=== PATIENT | male | born 1960 | race Caucasian/White ===

== ENCOUNTER → 2018-05-18 09:46 | Outpatient (CLI) | payer BC, MEDICARE, SELFPAY ==
[2018-05-18 10:48] LABS: Amphetamine Urine VISTA NEGATIVE (<1000 ng/mL); Barbiturate Urine VISTA NEGATIVE (< 200 ng/mL); Benzodiazepine Urine VISTA NEGATIVE (< 200 ng/mL); Cocaine Urine VISTA NEGATIVE (< 300 ng/mL); Ecstacy Urine VISTA NEGATIVE (< 500 ng/mL); Methadone Urine VISTA NEGATIVE (< 300 ng/mL); PCP Urine VISTA NEGATIVE (< 25 ng/mL); THC Urine VISTA NEGATIVE (< 50 ng/mL); Vista UDS pH Range 5
== END ==
PROVIDERS: Family Provider Family Medicine; PCP Family Medicine; Visit Provider Anesthesiology Pain Medicine
DX: F11.20 Opioid dependence, uncomplicated (principal)
CPT/HCPCS: 80307

== ENCOUNTER → 2019-04-06 10:58 | Outpatient (CLI) | payer BC, MEDICARE, SELFPAY ==
[2019-04-06 12:43] LABS: Amphetamine Urine VISTA NEGATIVE (<1000 ng/mL); Barbiturate Urine VISTA NEGATIVE (< 200 ng/mL); Benzodiazepine Urine VISTA NEGATIVE (< 200 ng/mL); Cocaine Urine VISTA NEGATIVE (< 300 ng/mL); Ecstacy Urine VISTA NEGATIVE (< 500 ng/mL); Methadone Urine VISTA NEGATIVE (< 300 ng/mL); PCP Urine VISTA NEGATIVE (< 25 ng/mL); THC Urine VISTA NEGATIVE (< 50 ng/mL); Vista UDS pH Range 6
== END ==
PROVIDERS: Family Provider Family Medicine; PCP Family Medicine; Referring Provider Anesthesiology Pain Medicine; Visit Provider Anesthesiology Pain Medicine
DX: F11.20 Opioid dependence, uncomplicated (principal)
CPT/HCPCS: 80307

== ENCOUNTER → 2020-06-27 14:14 | Outpatient (CLI) | payer BC, MEDICARE, SELFPAY ==
[2020-06-27 14:41] LABS: Amphetamine Urine VISTA NEGATIVE (<1000 ng/mL); Barbiturate Urine VISTA NEGATIVE (< 200 ng/mL); Benzodiazepine Urine VISTA NEGATIVE (< 200 ng/mL); Cocaine Urine VISTA NEGATIVE (< 300 ng/mL); Ecstacy Urine VISTA NEGATIVE (< 500 ng/mL); Methadone Urine VISTA NEGATIVE (< 300 ng/mL); PCP Urine VISTA NEGATIVE (< 25 ng/mL); THC Urine VISTA NEGATIVE (< 50 ng/mL); Vista UDS pH Range 6
== END ==
PROVIDERS: PCP Family Medicine; Referring Provider Anesthesiology Pain Medicine; Visit Provider Anesthesiology Pain Medicine
DX: F11.20 Opioid dependence, uncomplicated (principal)
CPT/HCPCS: 80307

== ENCOUNTER → 2020-12-12 12:27 | Outpatient (CLI) | payer BC, MEDICARE, SELFPAY ==
[2020-12-12 13:52] LABS: Amphetamine Urine VISTA NEGATIVE (<1000 ng/mL); Barbiturate Urine VISTA NEGATIVE (< 200 ng/mL); Benzodiazepine Urine VISTA NEGATIVE (< 200 ng/mL); Cocaine Urine VISTA NEGATIVE (< 300 ng/mL); Ecstacy Urine VISTA NEGATIVE (< 500 ng/mL); Methadone Urine VISTA NEGATIVE (< 300 ng/mL); PCP Urine VISTA NEGATIVE (< 25 ng/mL); THC Urine VISTA NEGATIVE (< 50 ng/mL); Vista UDS pH Range 5
== END ==
PROVIDERS: PCP Family Medicine; Referring Provider Anesthesiology Pain Medicine; Visit Provider Anesthesiology Pain Medicine
DX: F11.20 Opioid dependence, uncomplicated (principal)
CPT/HCPCS: 80307

== ENCOUNTER → 2021-01-31 14:12 | Outpatient (CLI) | payer BC, MEDICARE, SELFPAY ==
--- NOTE | 2021-01-31 14:14 | CT_ITS ---
STUDY: CTA OF THE ABDOMINAL AORTA AND BILATERAL LOWER EXTREMITIES REASON FOR EXAM: Male, 60 years old. Stricture of artery/atherosclerosis. History of tobacco abuse. High cholesterol and hypertension. RADIATION DOSAGE (If Supplied By Facility): CTDIvol = ( 10.95 ) mGy, DLP = ( 4413.96 ) mGycm TECHNIQUE: Axial CT angiography multi-detector data acquisition was obtained from the diaphragm to the feet following intravenous administration of IV 175 ML ISOVUE [id number]. Axial images and MIP images were reconstructed from the axial data set. Post-processing of the angiographic images was performed, with multiplanar reformation and 3D reconstruction. Individualized dose optimization techniques were used for this CT. TECHNICAL QUALITY: Good COMPARISON: None. Descriptors of Narrowing: None (0%) Mild (< 50%) Moderate (50-70%) Severe (70-90%) Subtotal/Total Occlusion (90-100%) Non-Evaluable (technically non-diagnostic FINDINGS: Abdominal aorta: Minimal atherosclerotic changes without stenosis aneurysm or dissection. Celiac and superior mesenteric arteries: Minimal atherosclerotic changes. The origin of the celiac artery without significant stenosis. Normal origin of the SMA. Scattered plaque is seen in the proximal artery without significant stenosis. Inferior mesenteric artery: No demonstrated narrowing. Right renal artery(arteries): Atherosclerotic changes of mild stenosis. Left renal artery(arteries): No demonstrated narrowing. Right common iliac artery: Atherosclerotic changes with mild stenosis. Right external iliac artery: Scattered atherosclerotic changes with mild stenosis. Right internal iliac artery: Atherosclerotic changes with mild stenosis. Left common iliac artery: Atherosclerotic changes with mild stenosis. Left external iliac artery: Scattered atherosclerotic changes with mild stenosis. Left internal iliac artery: Atherosclerotic changes with mild stenosis. RIGHT LOWER EXTREMITY Right common femoral artery: Occluded distally. Right profundus femoris: The origin is not well seen. . There is otherwise unremarkable. Right superficial femoral: Occluded. There is an occluded common femoral to popliteal graft. There is also a venous graft from the patent portion of the common femoral artery to the posterior tibial artery. Right popliteal artery: Occluded Right tibioperoneal trunk: Occluded Right anterior tibial artery: Occluded Right posterior tibial artery: Patent below the graft anastomosis. This can be followed to the foot. Right peroneal artery: Occluded LEFT LOWER EXTREMITY Left common femoral artery: Atherosclerotic changes with mild stenosis. Left profundus femoris: Minimal atherosclerotic changes without stenosis. Left superficial femoral: Occluded. There is a patent graft from the common femoral artery to the distal popliteal artery. Left popliteal artery: Occluded proximally. Patent distally. Left tibioperoneal trunk: No demonstrated narrowing. Left anterior tibial artery: No demonstrated narrowing. Left posterior tibial artery: No demonstrated narrowing. Left peroneal artery: No demonstrated narrowing. Lung bases are clear. The heart is normal in size. There is evidence of prior CABG procedure. The liver is enlarged and diffusely fatty infiltrated. There is no focal mass. Normal gallbladder and biliary ductal system. Normal spleen. Normal pancreas. Normal adrenal glands. Normal kidneys. Normal bilateral ureters. Normal stomach. Normal small bowel. Normal colon. Normal appendix. Normal IVC and retroperitoneum. Normal urinary bladder. Normal prostate and seminal vesicles. No pelvic lymphadenopathy. No free air or free fluid is seen within the abdominal cavity. Normal abdominal wall. Degenerative changes lumbar spine and hips. CT/CTA Abd w/Runoff W/WO Contrast IMPRESSION: 1. Mild atherosclerotic changes of the abdominal aorta and iliac arteries without aneurysm or dissection. There is no significant stenosis. 2. Occlusion of the right lower extremity arterial system is well as a and occluded femoropopliteal bypass graft. There is a second bypass graft from the common femoral to the posterior tibial artery, which is patent. 3. Occlusion of the left lower extremity arterial system from the superficial femoral to the popliteal artery. There is a patent femoropopliteal bypass graft. 4. Status post CABG procedure. 5. Enlarged fatty infiltrated liver. 6. Degenerative changes of the lumbar spine and hips. Electronically Signed: Sheldon Lagunas DO at 16:03 EDT Tel [phone], Service support ,
== END ==
PROVIDERS: PCP Family Medicine; Referring Provider Surgery Vascular Surgery; Visit Provider Surgery Vascular Surgery
DX: I70.213 Atherosclerosis of native arteries of extremities with intermittent claudication, bilateral legs (principal); I77.1 Stricture of artery; E78.70 Disorder of bile acid and cholesterol metabolism, unspecified; I10 Essential (primary) hypertension; E11.59 Type 2 diabetes mellitus with other circulatory complications; Z87.891 Personal history of nicotine dependence
CPT/HCPCS: 75635; Q9967

== ENCOUNTER → 2021-07-24 12:42 | Outpatient (CLI) | payer BC, MEDICARE, SELFPAY ==
[2021-07-24 14:26] LABS: Amphetamine Urine VISTA NEGATIVE (<1000 ng/mL); Barbiturate Urine VISTA NEGATIVE (< 200 ng/mL); Benzodiazepine Urine VISTA NEGATIVE (< 200 ng/mL); Cocaine Urine VISTA NEGATIVE (< 300 ng/mL); Ecstacy Urine VISTA NEGATIVE (< 500 ng/mL); Methadone Urine VISTA NEGATIVE (< 300 ng/mL); PCP Urine VISTA NEGATIVE (< 25 ng/mL); THC Urine VISTA NEGATIVE (< 50 ng/mL); Vista UDS pH Range 5
== END ==
PROVIDERS: PCP Family Medicine; Referring Provider Anesthesiology Pain Medicine; Visit Provider Anesthesiology Pain Medicine
DX: F11.20 Opioid dependence, uncomplicated (principal)
CPT/HCPCS: 80307